=== PATIENT | male | born 1990 | race Caucasian/White ===

== ENCOUNTER 2017-12-14 19:25 | Emergency (ER) | payer SELFPAY ==
[~2017-12-14] VITALS: Ht 190.5 cm; Wt 184.8 kg
[2017-12-14 19:44] VITALS: Ht 190.5 cm; Wt 184.8 kg
[2017-12-14 20:36] VITALS: BP 207/139
== END 2017-12-14 22:02 | disposition home or self-care (01) ==
LOC: ED 19:25
DX: D23.5 Other benign neoplasm of skin of trunk (principal)

== ENCOUNTER 2018-04-04 10:20 | Emergency (ER) | payer BC ==
[~2018-04-04] VITALS: Ht 190.5 cm; Wt 182.8 kg
[2018-04-04 10:26] VITALS: Ht 190.5 cm; Wt 182.8 kg
[2018-04-04 11:24] LABS: UA SPECIFIC GRAVITY 1.015 (1.005-1.035); microscopic required? YES; urine erythrocyte 2+ (NEGATIVE)
[2018-04-04 12:12] VITALS: BP 164/99
== END 2018-04-04 12:11 | disposition home or self-care (01) ==
LOC: ED 10:20
PROVIDERS: Emergency Medicine
DX: R50.9 Fever, unspecified (principal); R53.1 Weakness
CPT/HCPCS: 87491; 87591